=== PATIENT | male | born 1955 | race Caucasian/White ===

== ENCOUNTER 2023-01-09 13:24 | Outpatient (CLI) | payer MEDICARE, SELFPAY ==
[2023-01-09 15:41] LABS: Iron 67 ug/dL (49-181)
[2023-01-09 15:52] LABS: Percent Iron Saturation 22 % (20-50)
== END 2023-01-09 13:25 | disposition home or self-care (01) ==
PROVIDERS: PCP Family Medicine; Visit Provider Physician Assistant Medical
DX: D64.9 Anemia, unspecified (principal); R73.03 Prediabetes
CPT/HCPCS: 36415; 82728; 83036; 83540; 83550

== ENCOUNTER 2024-01-29 09:01 | Outpatient (CLI) | payer MEDICARE, SELFPAY ==
[2024-01-29 10:02] LABS: Basophils Percent Auto 0.5 % (0.2-1.2); Eosinophils Absolute Auto 0.2 K/mm3 (0-0.3); Eosinophils Percent Auto 2.5 % (0-4.4); Hematocrit 40.7 % (42.0-52.0); Hemoglobin 13.8 g/dL (14.0-18.0); Immature Granulocyte Absolute 0.03 K/mm3 (0.00-0.031); Immature Granulocyte Percent A 0.4 % (0-0.5); Lymphocytes Percent Auto 27.8 % (18.3-44.2); Mean Corpuscular HGB Conc 33.9 g/dl (32-36); Mean Corpuscular Hemoglobin 35.3 pg (26-34); Mean Corpuscular Volume 104.1 fl (80-100); Mean Platelet Volume 9.1 fl (7.4-10.4); Monocytes Absolute Auto 0.5 K/mm3 (0.1-0.6); Monocytes Percent Auto 5.8 % (2.6-8.5); Platelet Count Result 322 k/mm3 (150-375); Red Blood Count 3.91 M/mm3 (4.6-6.20); Red Cell Distribution Width 12.1 % (11.5-14.5); White Blood Count 7.9 K/mm3 (4.5-10.0)
[2024-01-29 10:14] LABS: Alanine Aminotransferase 25 U/L (6-50); Albumin Level 4.1 g/dL (3.5-5.1); Alkaline Phosphatase 64 U/L (38-126); Anion Gap 7 mmol/L (4-12); Aspartate Amino Transferase 26 U/L (17-59); Bilirubin,Total 0.7 mg/dL (0.2-1.3); Blood Urea Nitrogen 12 mg/dL (9-20); Carbon Dioxide 25 mmol/L (22-30); Chloride 105 mmol/L (98-107); Estimated Glomerular Filt Rate > 60; Glucose 114 mg/dL (65-110); Potassium 3.9 mmol/L (3.4-5.0); Sodium 137 mmol/L (137-145)
[2024-01-29 10:20] LABS: Hemoglobin A1C 5.2 % (<5.7)
[2024-01-29 11:20] LABS: Folic Acid > 20.0 ng/mL (2.76->20)
[2024-01-29 11:32] LABS: Hepatitis C Virus Antibody Negative (Negative)
[2024-02-01 09:30] LABS: Cholesterol 187 mg/dL (0-200); HDL Direct 53 mg/dL; Triglycerides 76 mg/dL (<150)
[2024-02-01 09:42] LABS: LDL Cholesterol Direct 120 mg/dL
== END 2024-01-29 09:02 | disposition home or self-care (01) ==
PROVIDERS: PCP Family Medicine; Visit Provider Student in an Organized Health Care Education/Training Program
DX: H61.20 Impacted cerumen, unspecified ear (principal); Z00.00 Encounter for general adult medical examination without abnormal findings; Z11.59 Encounter for screening for other viral diseases; Z12.5 Encounter for screening for malignant neoplasm of prostate; I10 Essential (primary) hypertension
CPT/HCPCS: 36415; 80053; 80061; 82607; 82746; 83036; 84153; 85025; 86803; G0103

== ENCOUNTER 2024-04-19 09:35 | Outpatient (CLI) | payer MEDICARE, SELFPAY ==
[2024-04-19 10:26] LABS: Basophils Percent Auto 0.5 % (0.2-1.2); Eosinophils Absolute Auto 0.2 K/mm3 (0-0.3); Hemoglobin 12.7 g/dL (14.0-18.0); Immature Granulocyte Absolute 0.02 K/mm3 (0.00-0.031); Immature Granulocyte Percent A 0.2 % (0-0.5); Lymphocytes Absolute Auto 2.63 K/mm3 (0.9-3.2); Lymphocytes Percent Auto 31.2 % (18.3-44.2); Mean Corpuscular HGB Conc 33.4 g/dl (32-36); Mean Corpuscular Hemoglobin 35.6 pg (26-34); Mean Corpuscular Volume 106.4 fl (80-100); Monocytes Absolute Auto 0.7 K/mm3 (0.1-0.6); Monocytes Percent Auto 7.7 % (2.6-8.5); Neutrophils Absolute Auto 4.9 K/mm3 (1.3-6.7); Neutrophils Percent Auto 58.4 % (45.5-73.1); Platelet Count Result 271 k/mm3 (150-375); Red Blood Count 3.57 M/mm3 (4.6-6.20); Red Cell Distribution Width 11.9 % (11.5-14.5); White Blood Count 8.4 K/mm3 (4.5-10.0)
[2024-04-19 11:12] LABS: Macrocytosis 1+ (NORMAL)
[2024-04-19 11:13] LABS: Platelet Estimate Adequate (Adequate); Schistocytes None Seen
[2024-04-19 11:41] LABS: Folic Acid 19.3 ng/mL (2.76->20)
== END 2024-04-19 09:36 | disposition home or self-care (01) ==
PROVIDERS: PCP Family Medicine; Visit Provider Student in an Organized Health Care Education/Training Program
DX: D53.9 Nutritional anemia, unspecified (principal)
CPT/HCPCS: 36415; 82607; 82746; 85025

== ENCOUNTER 2024-04-25 16:32 | Outpatient (CLI) | payer MEDICARE, SELFPAY ==
[2024-04-25 17:33] LABS: Iron 128 ug/dL (49-181)
[2024-04-25 17:42] LABS: Percent Iron Saturation 42 % (20-50)
== END 2024-04-25 16:33 | disposition home or self-care (01) ==
LOC: ANHLAB 16:35
PROVIDERS: PCP Family Medicine; Visit Provider Student in an Organized Health Care Education/Training Program
DX: D64.9 Anemia, unspecified (principal)
CPT/HCPCS: 36415; 82728; 83540; 83550

== ENCOUNTER 2024-04-29 08:53 | Outpatient (CLI) | payer MEDICARE, SELFPAY ==
[2024-04-29 09:41] LABS: Add Urine Microscopic? NO; Appearance Urine Clear (Clear); Bilirubin Urine Negative (Negative); Blood Urine Negative (Negative); Color Urine Yellow (Yellow); Glucose Urine UA Negative (Negative); Ketones Urine Negative (Negative); Leukocyte Esterase Ur Negative LEU/UL (Negative); Nitrate Urine Negative (Negative); Protein Urine Negative (Negative); Specific Grav Ur 1.005 (1.001-1.035); Urobilinogen Urine 0.2 mg/dL (<2.0)
== END 2024-04-29 08:54 | disposition home or self-care (01) ==
LOC: ANHLAB 08:55
PROVIDERS: PCP Family Medicine; Visit Provider Student in an Organized Health Care Education/Training Program
DX: R39.9 Unspecified symptoms and signs involving the genitourinary system (principal)
CPT/HCPCS: 81003

== ENCOUNTER 2024-10-07 15:15 | Outpatient (CLI) | payer MEDICARE, SELFPAY ==
--- NOTE | ~2024-10-07 | XR_ITS ---
XR hip BI 2V w AP pelvis Ordering provider: Usha Lerner PA-C History: . M54.50 - Low back pain, unspecified . Comparison: None. FINDINGS: BONES: No acute fracture or dislocation. HIP JOINT SPACES: Bilateral severe osteoarthritic changes. SACROILIAC JOINT SPACES/LUMBAR SPINE: The sacroiliac joint spaces are slightly narrowed.. Mild degene rative changes of the visualized lower lumbar spine. PUBIC SYMPHYSIS: Mild Pubic symphysitis. SOFT TISSUES: Normal. IMPRESSION: No acute osseous abnormality of the bilateral hips and pelvis. Severe bilateral hip osteoarthritic changes. Reviewed, dictated and finalized at location A.
--- NOTE | ~2024-10-07 | XR_ITS ---
3 VIEWS LUMBAR SPINE Ordering provider: Usha Lerner PA-C History: . M54.50 - Low back pain, unspecified . Comparison: None. FINDINGS: VERTEBRAL BODIES:Levoscoliosis. No visible fracture or subluxation. Degenerative changes of the spin e. DISK SPACES: Slight narrowing of the disc L2-L3. Facet joint disease at the level of L5-S1. Bilateral hip severe osteoarthritic changes. SOFT TISSUES: Normal. Right sacroiliitis. IMPRESSION: No acute osseous abnormality lumbar spine. Degenerative changes of the spine. Bilateral hip severe osteoarthritic changes. Reviewed, dictated and finalized at location A.
--- OUTSIDE RECORDS SUMMARY | 2024-10-07 15:18 | XMS_ITS | Clinical Summary ---
Author Organization [facility] [place] [address] Address [address] [place] [address] Care Team Providers Care Vessel Slagman Name Role Phone Raissa Marcelino MD Primary Care Provider [phone] Allergies No known active allergies Medications multivitamin-min erals-lutein (CENTRUM SILVER) tablet 0 03/11/2012 Active lisinopriL (PRINIVIL,ZESTRI L) 10 mg tablet TAKE 1 TABLET(10 MG) BY MOUTH DAILY 90 tablet 3 12/14/2023 Active metoprolol XL (TOPROL-XL) 50 mg extended release tablet TAKE 1 TABLET BY MOUTH DAILY 90 tablet 3 12/14/2023 Active Active Problems Problem Noted Date Diagnosed Date Ventricular premature complexes 07/09/2017 Medical History Medical History Date Comments Hypertension Hypertension Social History Tobacco Use Types Packs/Day Years Used Date Smoking Tobacco: Every Day Smokeless Tobacco: Never Tobacco Cessation:Ready to Q uit: Not Asked; Counseling Given: Not Answered Comments:Smoking History Packs/day: 1 Packs Alcohol Use Standard Drinks/Week Comments Yes 0 (1 standard drink = 0.6 oz pur e alcohol) Sex and Gender Information Value Date Recorded Sex Assigned at Not on file 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 Gender Identity Not on file Sexual Orientation Not on file Obstetrics History Last Filed Vital Signs Vital Sign Reading Time Taken Comments Blood Pressure 118/64 11/10/2023 10:02 AM CDT Pulse 71 11/10/2023 10:02 AM CDT Temperature - - Respiratory Rate - - Oxygen Saturation 96% 11/10/2023 10:02 AM CDT Inhaled Oxygen Concentration - - Weight 71.8 kg (158 lb 6.4 oz) 11/10/2023 10:02 AM CDT Height 177.8 cm (5' 10 ) 11/10/2023 10:02 AM CDT Body Mass Index 22.73 11/10/2023 10:02 AM CDT Plan of Treatment Health Maintenance Due Date Last Done Comments Colon Cancer Screening-Colonoscopy 1955 Depression Screening 1955 Fall Risk Assessment 1955 Hepatitis C Screening 1955 Prostate Cancer Screening-PSA 1955 DTaP/Tdap/Td Vaccine (1 - Tdap) 1966 Hepatitis B Screening 1973 Pneumococcal vaccine 65+ (1 of 2 - PCV) 1974 Zoster Vaccine (1 of 2) 2005 Abdominal Aortic Aneurysm (AAA) Screen 01/11/2020 Well Visit 65+ 01/11/2020 Influenza Vaccine (#1) 2024 Insurance [employer] MED[employer] Care Teams Vessel Slagman Relationship Specialty Start Date End Date Raissa Marcelino MD PCP - General Family Medicine 10/31/21
--- OUTSIDE RECORDS SUMMARY | 2024-10-07 15:18 | XMS_ITS | Referral Summary ---
Author Organization [facility] [place] [address] Address [address] [place] [address] Care Team Providers Care Foreign Language Stenographer Name Role Phone Raissa Marcelino MD Primary Care Provider [phone] Allergies No known active allergies Medications multivitamin-min erals-lutein (CENTRUM SILVER) tablet 0 03/11/2012 Active lisinopriL (PRINIVIL,ZESTRI L) 10 mg tablet TAKE 1 TABLET(10 MG) BY MOUTH DAILY 90 tablet 3 12/14/2023 Active metoprolol XL (TOPROL-XL) 50 mg extended release tablet TAKE 1 TABLET BY MOUTH DAILY 90 tablet 3 12/14/2023 Active Active Problems Problem Noted Date Diagnosed Date Ventricular premature complexes 07/09/2017 Social History Tobacco Use Types Packs/Day Years [...] on file 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 Gender Identity Not on file Sexual Orientation Not on file Last Filed Vital Signs Vital Sign Reading [...] 11/10/2023 10:02 AM CDT Plan of Treatment Not on file Insurance [employer] Member Subscriber Plan / Payer (Ef fective 2021-Present) Name:LinnetteKishoreLeroy A Relation to Subscriber:Self Name:Linnette Leroy A Payer ID:[id number] (NAIC) Type:[facility] MEDICARE Address: [place] [id number] MEDICARE SOLUTIONS Member Subscriber Plan / Payer ( fective 2021-Present) Name:Leroy Anglin Relation to Subscriber:Self Name:Linnette Leroy Kilpatrick Payer ID:[id number] (NAIC) Type:[facility] MEDICARE Address: [place] [phone] Care Teams Foreign Language Stenographer Relationship Specialty Start Date End Date Raissa Marcelino MD PCP - General Family Medicine 10/31/21
== END 2024-10-07 15:16 | disposition home or self-care (01) ==
PROVIDERS: PCP Family Medicine; Visit Provider Student in an Organized Health Care Education/Training Program
DX: M47.896 Other spondylosis, lumbar region (principal); M47.897 Other spondylosis, lumbosacral region; M16.0 Bilateral primary osteoarthritis of hip
CPT/HCPCS: 72100; 73521

== ENCOUNTER 2024-11-15 09:19 | Outpatient (CLI) | payer MEDICARE, SELFPAY ==
--- NOTE | ~2024-11-15 | MR_ITS ---
MRI of the lumbar spine Clinical History: Back pain Technique: Axial T2-weighted images, and sagittal T1-weighted, T2-weighted, and T2 fat-sat images wer e acquired. Findings: There is no fracture or subluxation of the lumbar spine. Vertebral bodies maintain normal h eight and alignment aside from straightening of the normal lumbar lordosis. No bone marrow signal abn ormality seen. At L1-L2, there is no disc bulge or herniation. No spinal canal stenosis or neural foraminal narrowin g. Probable mild facet arthropathy. At L2-L3, there is no disc bulge or herniation. There is mild to moderate facet arthropathy. No centr al canal stenosis or neural foraminal narrowing. At L3-L4, there is minimal disc bulge and mild facet arthropathy. No central canal stenosis or defini te neural foraminal narrowing. At L4-L5, there is no disc bulge or herniation. There is mild facet arthropathy. No central canal sacha nosis. Probable minimal left neural foraminal narrowing. Right neural foramen preserved. At L5-S1, there is no definite disc bulge or herniation. No spinal canal stenosis. There is probable mild bilateral neural foraminal narrowing. Paravertebral soft tissues are unremarkable. Impression: Mild degenerative spondylosis, as above. Reviewed, dictated and finalized at location . Impression: Mild degenerative spondylosis, as above.
== END 2024-11-15 09:20 | disposition home or self-care (01) ==
LOC: GOSHIMG 09:19
PROVIDERS: PCP Pain Medicine Pain Medicine; Visit Provider Student in an Organized Health Care Education/Training Program
DX: M47.816 Spondylosis without myelopathy or radiculopathy, lumbar region (principal)
CPT/HCPCS: 72148

== ENCOUNTER 2025-01-30 10:16 | Outpatient (CLI) | payer MEDICARE, SELFPAY ==
--- OUTSIDE RECORDS SUMMARY | 2025-01-30 10:03 | XMS_ITS | Clinical Summary ---
Author Organization [facility] [place] [address] Address [address] [place] [address] Care Team Providers Care Exploration Engineer Name Role Phone Raissa Marcelino MD Primary Care Provider [phone] Allergies No known active allergies Medications multivitamin-min erals-lutein (CENTRUM SILVER) tablet 0 03/11/2012 Active metoprolol XL (TOPROL-XL) 50 mg extended release tablet TAKE 1 TABLET BY MOUTH DAILY 90 tablet 3 12/14/2024 Active lisinopriL (PRINIVIL,ZESTRI L) 10 mg tablet TAKE 1 TABLET(10 MG) BY MOUTH DAILY 90 tablet 3 12/14/2024 Active Active Problems Problem Noted Date Diagnosed [...] on file 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 Gender Identity Not on file Sexual Orientation Not on file Obstetrics History Last Filed Vital Signs Vital Sign Reading Time Taken Comments Blood Pressure 108/60 10/26/2024 10:50 AM CDT Pulse 72 10/26/2024 10:50 AM CDT Temperature - - Respiratory Rate - - Oxygen Saturation 97% 10/26/2024 10:50 AM CDT Inhaled Oxygen Concentration - - Weight 70.8 kg (156 lb) 10/26/2024 10:50 AM CDT Height 177.8 cm (5' 10) 10/26/2024 10:50 AM CDT Body Mass Index 22.38 10/26/2024 10:50 AM CDT Plan of Treatment Health Maintenance Due Date Last Done Comments Colon Cancer Screening-Colonoscopy 1955 Depression Screening 1955 Fall Risk Assessment 1955 Hepatitis C Screening 1955 DTaP/Tdap/Td Vaccine (1 - Tdap) 1966 Hepatitis B Screening 1973 Pneumococcal vaccine 65+ (1 of 2 - PCV) 1974 Zoster Vaccine (1 of 2) 2005 Abdominal Aortic Aneurysm (AAA) Screen 01/11/2020 Well Visit 65+ 01/11/2020 Influenza Vaccine (Season Ended) 2025 Insurance [facility] MEDICARE ADVANTAGE [facility] [place] [address] Care Teams Exploration Engineer Relationship Specialty Start Date End Date Raissa Marcelino MD PCP - General Family Medicine 10/31/21
--- OUTSIDE RECORDS SUMMARY | 2025-01-30 10:03 | XMS_ITS | Referral Summary ---
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
--- OUTSIDE RECORDS SUMMARY | 2025-01-30 10:27 | XMS_ITS | Referral Summary ---
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 Gender Identity Not on file Sexual Orientation [...] Plan of Treatment Not on file Insurance [facility] MEDICARE ADVANTAGE Member Subscriber Plan / Payer (Ef fective 2021-Present) Name:Leroy Anglin Relation to Subscriber:Self Name:Leroy Anglin Payer ID:[id number] (NAIC) Type:[facility] MEDICARE Address: [place] [phone] [employer] MEDICARE ADVANTAGE Member Subscriber Plan / Payer (Ef fective 2021-Present) Name:Leroy Anglin Relation to Subscriber:Self Name:Linnette Leroy A Payer ID:[id number] (NAIC) Type:[facility] MEDICARE Address: [place] [phone] Care Teams Cell Technician Relationship Specialty Start Date End Date Raissa Marcelino MD PCP - General Family Medicine 10/31/21
--- OUTSIDE RECORDS SUMMARY | 2025-01-30 10:27 | XMS_ITS | Clinical Summary ---
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
[2025-01-30 10:32] LABS: Hematocrit 41.3 % (42.0-52.0); Hemoglobin 13.5 g/dL (14.0-18.0); Immature Granulocyte Percent A 0.5 % (0-0.5); Lymphocytes Absolute Auto 2.17 K/mm3 (0.9-3.2); Mean Corpuscular HGB Conc 32.7 g/dl (32-36); Mean Corpuscular Hemoglobin 34.8 pg (26-34); Mean Corpuscular Volume 106.4 fl (80-100); Nucleated Red Blood Cells Absolute Auto 0.000 K/mm3 (0.0-0.012); Nucleated Red Blood Cells Perc 0.0 % (0.0-0.2); Platelet Count Result 312 k/mm3 (150-375); Red Blood Count 3.88 M/mm3 (4.6-6.20); White Blood Count 8.1 K/mm3 (4.5-10.0)
[2025-01-30 10:44] LABS: Iron 99 ug/dL (49-181)
[2025-01-30 10:45] LABS: Alanine Aminotransferase 29 U/L (6-50); Albumin Level 4.2 g/dL (3.5-5.1); Alkaline Phosphatase 56 U/L (38-126); Anion Gap 7 mmol/L (4-12); Aspartate Amino Transferase 30 U/L (17-59); Bilirubin,Total 0.6 mg/dL (0.2-1.3); Blood Urea Nitrogen 14 mg/dL (9-20); Calcium 9.9 mg/dL (8.4-10.2); Carbon Dioxide 27 mmol/L (22-30); Chloride 105 mmol/L (98-107); Cholesterol 222 mg/dL (0-200); Estimated Glomerular Filt Rate > 60; Glucose 90 mg/dL (65-110); HDL Direct 60 mg/dL; Potassium 4.4 mmol/L (3.4-5.0); Sodium 139 mmol/L (137-145); Total Protein 7.2 g/dL (6.3-8.2); Triglycerides 92 mg/dL (<150)
[2025-01-30 10:53] LABS: Macrocytosis 1+ (NORMAL); Schistocytes None Seen
[2025-01-30 10:58] LABS: Hemoglobin A1C 5.2 % (<5.7)
[2025-01-30 11:02] LABS: Free T4 Free Thyroxine 1.01 ng/dL (0.78-2.19)
[2025-01-30 11:17] LABS: Prostate Specific Antigen 0.8 ng/mL (< OR = 4.0); Thyroid Stimulating Hormone 2.200 uIU/mL (0.465-4.680)
[2025-01-30 11:53] LABS: Vitamin B12 708.0 pg/mL (239-931)
== END 2025-01-30 10:17 | disposition home or self-care (01) ==
PROVIDERS: PCP Family Medicine; Visit Provider Student in an Organized Health Care Education/Training Program
DX: I49.3 Ventricular premature depolarization (principal); R53.83 Other fatigue; D64.9 Anemia, unspecified; E78.00 Pure hypercholesterolemia, unspecified; Z12.5 Encounter for screening for malignant neoplasm of prostate; Z13.1 Encounter for screening for diabetes mellitus
CPT/HCPCS: 36415; 80053; 80061; 82607; 82746; 83036; 83540; 84153; 84403; 84439; 84443; 85025; G0103